=== PATIENT | male | born 1970 | race Caucasian/White ===

== ENCOUNTER 2019-07-14 08:11 | Day surgery (SDC) | payer BC, SELFPAY ==
[2019-07-14] VITALS (8 sets, daily range): BP systolic 102–134; BP diastolic 55–78; PULSE 69–84; RESP 15–20; TEMP 36.1–36.8; O2SAT 90–94
--- NOTE | 2019-07-14 06:45 | W.PM.HP.N ---
Date of service: 07/14/19 Time of Service: 11:01 Assessment and Plan (1) Encounter for screening colonoscopy: Current visit: No Status: Acute P\\ Colonoscopy under sedation Risks, benefits and complications have been reviewed. Complications include but are not limited to bleeding, pain, perforation, missed small lesion/polyp, sore throat, aspiration and adverse reaction to the medications. Questions were entertained and answered to their satisfaction and they wished to proceed. No guarantees were given or implied. History of Present Illness Narrative: 49 y/o male with a benign medical history presents for his first colonoscopy screening pre-op. He denies a family history of colon cancer. He denies any changes in bowel habits including bloody or black tarry stools, abdominal pain, diarrhea or constipation. He denies constitutional symptoms. Denies use of recreational or illegal drugs. He denies chest pain, palpitations, dyspnea or dyspnea with exertion. He rides his road bike to work daily ([address]) and goes to the gym 3x/wk. He denies prior history or family history of adverse reactions or complications with anesthesia. There have been no changes in his health since he was last seen Review of Systems Constitutional Denies fever(s) [facility] Medical History Sciatica (Acute) Surgical History History of back surgery (Acute) History of tonsillectomy (Chronic) Social History Smoking/Tobacco Use Status: Never Alcohol Intake: current Alcohol Intake frequency: a few times a week Alcohol type: beer Drug use: Occasionally Substance use type: marijuana Do you feel safe at home: Yes Do you feel safe in your relationship?: Yes Meds Home Medications Medication Instructions Recorded Confirmed Type ibuprofen 200 mg tablet 600 mg PO QID PRN tab 04/14/19 07/14/19 History Allergies Allergy/AdvReac Type Severity Reaction Status Date / Time ciprofloxacin [From Cipro] Allergy Unknown unknown Verified 07/14/19 08:32 Penicillins Allergy Unknown unknown Verified 07/14/19 08:32 Exam Resp Effort & Inspection: normal respiratory effort Auscultation: clear to auscultation bilaterally Cardio Rate: regular rate Rhythm: regular rhythm Heart Sounds: no gallops, no murmurs and no rubs
--- NOTE | 2019-07-14 06:47 | W.COLOREPORT ---
Date of service: 07/14/19 Time of Service: : Colonoscopy Report Date of procedure: 07/14/19 Pre-op diagnosis general: Colon Cancer Screening Post-op diagnosis procedure note: other (sigmoid polyps, mild diverticulosis) Procedure: Colonoscopy with polypectomy Surgeon: Mer Pena Anesthesia proc note operative: other (General/ ASA 2/Andreina Carpio CRNA ) Estimated blood loss (mL): 3 Pathology: other (sigmoid polyps x2) Complications: None Disposition: same day Indications: Mr. Alanis is a pleasant 49-year-old gentleman who was seen in the office for his first screening colonoscopy. He denies any family history of colon cancer. Risks, benefits and complications have been reviewed. Complications include but are not limited to bleeding, pain, perforation, missed small lesion/polyp, sore throat, aspiration and adverse reaction to the medications. Questions were entertained and answered to their satisfaction and they wished to proceed. No guarantees were given or implied. Prep: Miralax/Dulcolax Procedure Start Time: 11:22 Procedure End Time: 11:47 Retraction Time: 13 minutes Findings: 2 small sessile polyps in the sigmoid colon. Mild dievrticulosis of the signmoid colon Procedure Description: After informed consent was obtained the patient was taken to the procedure room and placed in a left decubitous position. Monitors were applied and a time out was done. The patients name, date of , procedure, allergies to medications and metal in their body was reviewed. The patient was then sedated. Once sedated and comfortable a rectal exam was done. External exam was normal. Internal exam revealed a normal sphincter tone and no palpable masses. The prostate smooth. The scope was then introduced and retro-flexed. No internal hemorrhoids were identified. The scope was then advanced to the cecum without difficulty. The TI and appendiceal orifice were identified. The prep was good. The scope was then slowly retracted over 13 minutes back into the rectum. Polyps were removed with cold forceps in the sigmoid colon. The scope was removed and the patient was woken up and taken back to Same day surgery in stable condition. The patient did bring up gastric contents and had to be suctioned by anesthesia. He had been given Bicitra prior to the procedure. He was coughing throughout the second half of the procedure. He will be going to PACU for monitoring. Follow up: The patient should follow up in 3-5 years unless they develop changes in bowel habits or other new gastrointestinal complaints.
--- NOTE | 2019-07-14 06:49 | W.PM.DSUDISC ---
Discharge Plan Disposition Patient Disposition: HOME Condition: Good Discharge Details Reason For Visit: Colonoscopy Attending Provider: Mer Pena Primary Care Provider: Jorge Davis Home Meds and New Rx's Prescriptions: Continued ibuprofen 200 mg tablet 600 mg PO QID PRNRF: 0 Discontinued polyethylene glycol 3350 17 gram/dose powder 238 g PO ONCE Qty: 238 RF: 0 bisacodyl [Dulcolax (bisacodyl)] 5 mg tablet,delayed release (DR/EC) 5 mg PO ONCE Qty: 4 RF: 0 Discharge Instructions Instructions: Colonoscopy (GEN), Diverticulosis (ED), Colorectal Polyps (GEN) Additional Instructions: Findings: 2 small polyps mild diverticulosis Follow up: 3-5 years Please call if you develop: fevers >101.5 Nausea or Vomiting Abdominal pain that is not transient DAY SURGERY UNIT POST COLONOSCOPY INSTRUCTIONS 1. Because there will be medication in your system for the next 24 hours, you may feel a little sleepy. Your coordination will be affected. Therefore: a. Do not drive or operate dangerous equipment for 24 hours. b. Do not drink alcohol beverages for 24 hours (not even beer). c. Plan to go home and rest for the day. 2. Generally there are no restrictions on your activity after a day or so has gone by, but you may feel a bit fatigued for a few days. 3 After you arrive home you may have a light meal and return to a normal diet as you can tolerate it without feeling sick to your stomach. 4. After surgery, you may feel pain or discomfort. This should be only transient, but if it persists please contact your doctor. 5. If there are any questions regarding the findings of your procedure, please feel free to contact your doctor. 6. If you are unable to contact your doctor with a problem, contact the hospital at [phone]. 7. Continue all your regular medications unless directed otherwise. I understand the above instructions and have no questions. Signature of Patient or Responsible Adult Escort Date/Time Name of Responsible Adult Escort Signature of Nurse Date/Time Activity:: Activity as Tolerated Diet:: High Fiber diet Discharge Orders Discharge Orders: Discharge Order (Routine); Ordered 07/14/19 Ordered By: Mer Pena DS: Diagnosis Discharge Diagnosis (1) Encounter for screening colonoscopy: Status: Acute (2) Colorectal polyps: (3) S/P colonoscopy: (4) Diverticulosis:
[2019-07-14] MEDS: Lactated Ringers 1,000 ML 80 ML IV ×2 (08:46→11:53)
[2019-07-14] MEDS: Sodium Citrate 30 ML CUP (11:15)
--- NOTE | 2019-07-14 11:44 | BOWEL_PTH ---
PATIENT: Otoniel Alanis LOC: [facility] U#:[id number] AGE/SX: 49/M ROOM: RE07/14/[address]: Mer Pena MD : 1970 BED: DIS: 07/14/2019 SPEC #: [id number] RECD: 07/14/19 12:40 STATUS: LEONARDO REQ #: [id number] KAYLAN: 07/14/19 11:[address]: Mer Pena DEPT: Surgical Specimen RECD BY: Belkis Brooke ENTERED: 07/14/19 12:41 SP TYPE: Bowel OTHR DR: Jorge Davis Tissues: 1 - BIOPSY BOWEL Procedures: GROSS AND MICRO LEVEL 4 Comments: [id number]
== END 2019-07-14 14:12 | disposition home or self-care (01) ==
PROVIDERS: PCP Internal Medicine; Visit Provider Surgery
PROC: 0DJD8ZZ Inspection of Lower Intestinal Tract, Via Natural or Artificial Opening Endoscopic (ICD-10-PCS; CPT 45378; principal; 2019-07-14 10:00)
DX: Z12.11 Encounter for screening for malignant neoplasm of colon (principal); Z87.19 Personal history of other diseases of the digestive system; K63.5 Polyp of colon; K57.30 Diverticulosis of large intestine without perforation or abscess without bleeding; R11.10 Vomiting, unspecified; R07.9 Chest pain, unspecified
CPT/HCPCS: 45380; 88305; NC; 93005; 93010

== ENCOUNTER 2019-12-08 20:50 | Outpatient (REF) | payer BC, SELFPAY ==
[2019-12-08 19:29] LABS: Abs Immature Grans 0.01 k/cumm (0.0-0.09); Absolute Basophil Count 0.02 k/cumm (0.0-0.2); Absolute Eosinophil Count 0.06 k/cumm (0.0-0.7); Absolute Lymphocyte Count 1.52 k/cumm (1.2-3.4); Absolute Monocyte Count 0.59 k/cumm (0.11-0.7); Absolute Neutrophil Count 4.04 k/cumm (1.2-6.7); Basophils % 0.3; HCT 44.3 % (40.0-50.0); HGB 15.2 g/dL (13.5-17.5); Immature Grans % 0.2 %; Lymphocytes % 24.4; Mean Corp. HGB Concentration 34.3 g/dL (32.0-36.0); Mean Corpuscular Hemoglobin 32.8 pg (27.0-33.0); Mean Corpuscular Volume 95.7 fL (80-95); Mean Platelet Volume 9.8 fL (8.0-11.0); Monocytes % 9.5; Neutrophils % 64.6; Platelet Count 287 x1000/uL (130-400); RBC 4.63 m/cumm (4.50-6.00); RBC Distribution Width 12.1 % (11.8-14.1); White Blood Cell Count 6.24 k/cumm (4.4-10.8)
== END 2019-12-08 21:10 ==
LOC: NCHCN 20:50
PROVIDERS: Physician Assistant; PCP Internal Medicine; Visit Provider Internal Medicine
DX: Z01.818 Encounter for other preprocedural examination (principal)
CPT/HCPCS: 85025

== ENCOUNTER 2020-09-23 03:03 | Outpatient (CLI) | payer BC, SELFPAY ==
--- NOTE | 2020-09-23 | DI.US_ITS ---
EXAM: US SOFT TISS ABD WALL/LOW BACK CLINICAL HISTORY: LIPOMA ABD WALL,RT UPPER ABD AND LT LAT TRUNK LUMPS,HERNIA VS LIPOMA. TECHNIQUE: Ultrasound was performed using standard protocol. COMPARISON: No exams were available for comparison FINDINGS: Sonographic assessment utilizing grayscale and color Doppler imaging was performed and targeted to th e area of clinical concern. The palpable area in the sub xiphoid region corresponds to a homogeneous, fatty echogenicity lesion measuring 3.2 x 1.5 x 3.3 cm, consistent with a simple lipoma. The 2nd area of palpable abnormality is seen in the left lateral flank region which is also homogeneous and isoechoic with adjacent fat a nd measures 4.9 x 0.8 x 3.5 cm. IMPRESSION: Palpable abnormalities are consistent with lipomas. There is no evidence of a hernia. DATA REPOSITORY:
== END 2020-09-23 03:23 ==
PROVIDERS: PCP Internal Medicine; Visit Provider Nurse Practitioner Family
DX: D17.79 Benign lipomatous neoplasm of other sites (principal)
CPT/HCPCS: 76705

== ENCOUNTER 2020-10-07 10:53 | Outpatient (REF) | payer BC, SELFPAY ==
--- NOTE | 2020-10-07 09:00 | SKI_PTH ---
PATIENT: Otoniel Alanis LOC: [facility] U#:[id number] AGE/SX: 50/M ROOM: RE10/07/[address]: Pili Mcbride : 1970 BED: DIS: 10/07/2020 SPEC #: [id number] RECD: 10/07/20 11:31 STATUS: LEONARDO REAndrew #: [id number] KAYLAN: 10/07/20 09:[address]: Pili Mcbride DEPT: Surgical Specimen RECD BY: Domonique Whitman ENTERED: 10/07/20 11:33 SP TYPE: SKI OTHR DR: Jorge Davis Tissues: 1 - SKIN BIOPSY(SHAVE/PUNCH) Procedures: GROSS AND MICRO LEVEL 5 Comments: [id number]
== END 2020-10-07 11:13 ==
LOC: LBN 10:53
PROVIDERS: PCP Internal Medicine; Visit Provider Surgery
DX: D17.1 Benign lipomatous neoplasm of skin and subcutaneous tissue of trunk (principal); D17.21 Benign lipomatous neoplasm of skin and subcutaneous tissue of right arm
CPT/HCPCS: 88305; 88307

== ENCOUNTER 2022-07-30 16:12 | Outpatient (REF) | payer BC, SELFPAY ==
[2022-07-30 16:28] LABS: HCT 44.9 % (40.0-50.0); HGB 15.9 g/dL (13.5-17.5); MCH 33.3 pg (27.0-33.0); MCHC 35.4 % (32.0-36.0); MCV 94 fL (80-95); MPV 10.2 fL (8.0-11.0); Platelet Count 266 10^3/uL (130-400); RBC 4.78 10^6/uL (4.36-5.78); RDW 11.7 % (11.8-14.1); RDW-SD 40.4 fL; WBC 6.25 10^3/uL (4.4-10.8)
[2022-07-30 16:51] LABS: Anion Gap 13.2 mmol/L (3-11); BUN 18 mg/dL (7-18); CO2 24.8 mmol/L (21.0-32.0); CREATININE 1.1 mg/dL (0.70-1.30); Calcium 9.6 mg/dL (8.5-10.1); Calculated LDL 146 mg/dL (<100); Chloride 104 mmol/L (98-107); Cholesterol 232 mg/dL (<200); Estimated GFR 80.27 (mL/min/1.73m2); Glucose 96 mg/dL (74-106); HDL Cholesterol 55 mg/dL (40-60); Potassium 4.3 mmol/L (3.5-5.1); Sodium 142 mmol/L (136-145); Triglyceride 157 mg/dL (<150)
[2022-07-31 18:22] LABS: PSA, Screening 3.3 ng/mL (<=3.5)
== END 2022-07-30 16:13 | disposition home or self-care (01) ==
LOC: NCHCN 16:12
PROVIDERS: PCP Internal Medicine; Visit Provider Physician Assistant
DX: Z00.00 Encounter for general adult medical examination without abnormal findings (principal); Z12.5 Encounter for screening for malignant neoplasm of prostate
CPT/HCPCS: 80048; 80061; 84153; 85027

== ENCOUNTER 2024-07-31 15:00 | Outpatient (REF) | payer BC, SELFPAY ==
[2024-07-31 16:20] LABS: ALT 30 U/L (16-63); AST 13 U/L (15-37); Alkaline Phosphatase 68 U/L (46-116); Anion Gap 10.3 mmol/L (3-11); BUN 16 mg/dL (7-18); Bilirubin, Total 1.06 mg/dL (0.2-1.0); CO2 24.7 mmol/L (21.0-32.0); CREATININE 1.1 mg/dL (0.70-1.30); Calcium 9.4 mg/dL (8.5-10.1); Calculated LDL 141 mg/dL (<100); Chloride 105 mmol/L (98-107); Cholesterol 230 mg/dL (<200); Estimated GFR 79.28 (mL/min/1.73m2); Glucose 102 mg/dL (74-106); HDL Cholesterol 53 mg/dL (40-60); Potassium 4.1 mmol/L (3.5-5.1); Sodium 140 mmol/L (136-145); Total Protein 6.9 g/dL (6.4-8.2); Triglyceride 182 mg/dL (<150)
== END 2024-07-31 15:01 | disposition home or self-care (01) ==
LOC: NCHCN 15:00
PROVIDERS: PCP Internal Medicine; Visit Provider Physician Assistant
DX: E78.5 Hyperlipidemia, unspecified (principal); Z12.5 Encounter for screening for malignant neoplasm of prostate
CPT/HCPCS: 80053; 80061; 84153

== ENCOUNTER 2024-11-06 00:30 | Outpatient (CLI) | payer BC, SELFPAY ==
--- NOTE | 2024-11-06 13:30 | DI.RAD_ITS ---
Exam(s) XR CERVICAL SPINE COMP 4-5V EXAM: XR CERVICAL SPINE COMP 4-5V CLINICAL HISTORY: NECK PAIN,M54.2. TECHNIQUE: 2D digital imaging was performed. Seven images were obtained. AP, odontoid, lateral and b ilateral oblique images were obtained. COMPARISON: No exams were available for comparison FINDINGS: The odontoid is intact. The lateral masses are well aligned. There are endplate osteophytes from C3 through C7. There is disc space narrowing at C4-C5 through C6-C7. No acute fracture or subluxation is present. There is moderate neural foraminal narrowing on the right at C4-5 and C5-C6 and mild sintia ral foramen normal narrowing on the right at C6-C7. There is moderate neural foraminal narrowing on the left at C5-6 and C6-C7. There is mild reversal of the normal cervical lordosis. This is centere d at C4. The cervical thoracic junction is well maintained. The prevertebral soft tissues are unrema rkable. Lung apices are clear. IMPRESSION: Moderate cervical spondylosis. DATA REPOSITORY: RADIATION DOSE DELIVERED:
== END 2024-11-06 00:50 ==
LOC: DI 00:30
PROVIDERS: PCP Internal Medicine; Visit Provider Physician Assistant
DX: M47.892 Other spondylosis, cervical region (principal)
CPT/HCPCS: 72050

== ENCOUNTER 2025-01-27 14:28 | Outpatient (CLI) | payer BC, SELFPAY ==
[2025-01-27 14:43] VITALS: BP 148/88; PULSE 81; RESP 20; TEMP 36.7; O2SAT 96
[2025-01-27 15:47] VITALS: PULSE 74; O2SAT 94
[2025-01-27 15:50] VITALS: BP 140/60; PULSE 71; RESP 20; O2SAT 94
[2025-01-27 15:51] VITALS: PULSE 69; RESP 13; O2SAT 95
--- NOTE | 2025-01-27 16:00 | DI.RAD_ITS ---
Exam(s) XR PAIN CLINIC CERVICAL SP 2V EXAM: XR PAIN CLINIC CERVICAL SP 2V CLINICAL HISTORY: Dx: Cervical Spondylosis TECHNIQUE: 2D and realtime digital imaging was performed. CONTRAST MATERIAL: Refer to procedure report. COMPARISON: No exams were available for comparison FINDINGS: Fluoroscopy was provided for Dr. Vigil during the performance of a cervical medial branch block. Ple ase refer to the procedure report for complete details. Ka,r=3.61 mGy IMPRESSION: RADIATION DOSE DELIVERED: 0.0 0.0 0
[2025-01-27] MEDS: Nerve Block Tray 1 EACH MC (16:05)
[2025-01-27] MEDS: Bupivacaine 0.5% Pres-Free 10 ML VIAL IJ (16:05)
[2025-01-27] MEDS: Omnipaque 240 MG/ML 50 ML BTL IJ (16:06)
--- NOTE | 2025-01-28 16:02 | PDOC.PAIN_ITS ---
Date of service: 01/27/25 Time of Service: 16:00 Pain Managment Procedure Note Procedure Note Procedure Note: PROCEDURE NOTE LEFT SIDED CERVICAL MEDIAL BRANCH BLOCKS Date of Service: January 27, 2025 Patient: Otoniel Alanis Provider: Arslan Vigil DO, MPH Ootnieladri Alanis has been referred to the [facility] for cervical medial branch blocks. Pre-operative diagnosis: Cervical Spondylosis without Myelopathy ICD-10 M47.812 Post-operative diagnosis: Same Pre-procedure pain: VAS= 3/10 COMMENTS: I previously evaluated him in the office. Philipwas interviewed and the medical records were reviewed. There were no medical, pharmacologic, radiographic or other structural contraindications to attempting fluoroscopically guided local anesthetic cervical medial branch blocks. Risks and potential side effects were discussed. I also discussed the potential benefit(s) of the procedure with Otoniel, and voiced concerns were addressed. After Otoniel was completely informed about the procedure, the printed consent form was signed. A standard time-out procedure was performed. Otoniel was placed in the lateral decubitus position on the fluoroscopy table with the effected side up. Automated blood pressure cuff and pulse oximeter were applied. The skin entry points for approaching the anatomic target points of the segmental medial branches of Left C3,C4,C5, and C6 were identified with fluoroscopy and marked. The skin at the target site area was thoroughly prepared with Chlorhexadine. The skin was then draped. Next, a 25 gauge 3.5 spinal needle was placed under fluoroscopic guidance down on to the target point (the articular pillar) for each respective segmental medial branch. Position was confirmed in A/P and lateral views. Aspiration revealed no blood or clear fluid. Next, 0.25ml of omnipaque 240 was injected at each level. No contrast following a vascular or neural pattern was visualized under continuous fluoroscopy. Next, 0.25 ml of preservative-free 0.5% bupivicaine was injected at each level. (49 mls of Omnipaque was wasted) There was no unusual discomfort expressed by Otoniel. The needles were withdrawn without difficulty. Otoniel was observed and was without hemodynamic, neurologic, or allergic reactions.? Fluoroscopic images were digitally archived. Otoniel's vital signs were stable throughout the procedure and were as recorded in the docflowsheet by the nursing staff. Provacative testing using the Modified Zepeda's facet loading test Left side Directly before the block VAS (0-10) = 3/10 Five minutes after the block VAS (0-10) = 1/10 Percentage relief obtained with this diagnostic block 80% Any improved physical functioning directly after the blocks? Able to move his back well after the procedure Follow up plans and appointments were discussed with Otoniel. Otoniel was instructed to keep careful note of how the usual pain was modified by these injections. Specifically, to keep a pain diary for the next 4 hours using a numeric pain scale of 0-10 and report these results. Post procedure instruction was given as documented in the nursing documentation and having met discharge criteria, the patient was [facility] from the [facility]. Based on the medial branches blocked today, if Otoniel has adequate relief and we are able to proceed to radiofrequency ablation, the treatment should result in the denervation of the Left C3-C4, C4-C5, and C5-C6 facet joints. We would expect to denervate a total of 3 facets during the radiofrequency ablation. COMMENTS: No apparent complications. Post-procedure pain: VAS= 1/10 Otoniel will call back with 0-4 hour post-procedure pain scores. I personally performed the entire procedure. ARSLAN VIGIL DO, MPH ABPM&R-subspecialty board certification in Pain Medicine [facility] Coding Conscious Sedation used for procedure: No CPT Codes: CMBB (includes Fluoro) Cervical/Thoracic, single lvl - 13877 ([id number] ~G) CMBB (includes Fluoro) Cervical/Thoracic, 2nd lvl - 39853 ([id number] ~G) CMBB (includes Fluoro) Cervical/Thoracic, 3rd & add'l lvls - 52369 ([id number] ~G) Additional Codes: Date of Service (49378) Date of service: 01/27/25
== END 2025-01-27 14:29 | disposition home or self-care (01) ==
LOC: PC 14:29
PROVIDERS: PCP Physician Assistant; Visit Provider Preventive Medicine Occupational Medicine
DX: M47.812 Spondylosis without myelopathy or radiculopathy, cervical region (principal)
CPT/HCPCS: 64490; 64491; 64492; 72040; J0665; Q9967

== ENCOUNTER 2025-02-02 02:23 | Outpatient (CLI) | payer BC, SELFPAY ==
--- NOTE | 2025-02-02 | DI.MRI_ITS ---
Exam(s) MR LUMBAR SPINE WO EXAM: MR LUMBAR SPINE WO CLINICAL HISTORY: SPONDYLOLISTHESIS M43.10. TECHNIQUE: Multiplanar multisequence MRI of the Lumbar spine was performed. COMPARISON: CR XR CERVICAL SPINE COMP 4-5V from 11/06/2024 XR PAIN CLINIC CERVICAL SP 2V from 01/27/2025 FINDINGS: Bones: The last intervertebral disc space is designated the L5/S1 level for the numbering purpose of this ex amination. The vertebral body heights are well maintained. Posterior fusion hardware at L4-5. Alignment: Unremarkable. The marrow signal characteristics are unremarkable. Cord: The conus tip ends at the L1 level. It is of normal size and signal intensity. T12-L1: No focal disc herniation is present. No central spinal canal stenosis.No neural foraminal st enosis. L1-2: No focal disc herniation is present. No central spinal canal stenosis.No neural foraminal sten osis. L2-3:Minimal disc bulging. No focal disc herniation is present. No central spinal canal stenosis.N o neural foraminal stenosis. L3-4: Slight loss of disc height. Left paracentral disc protrusion with inferior extrusion of disc m aterial. There are facet degenerative changes and ligamentous hypertrophy which combine with the dis c herniation to cause moderate central spinal canal stenosis.Mild bilateral neural foraminal stenosi s. L4-5:Posterior fusion hardware. Prior laminectomy. Ppql-mw-fljgxalh loss of disc height. Minimal d isc bulging. No focal disc herniation is present. No central spinal canal stenosis.No neural forami nal stenosis. L5-S1: Moderate loss of disc height. Endplate osteophytes.No focal disc herniation is present. No c entral spinal canal stenosis.Mild right neural foraminal stenosis. The visualized SI joints and sacrum are unremarkable. Soft tissues: The paraspinal soft tissues are unremarkable. IMPRESSION: Left paracentral disc herniation at L4-5 with inferior extrusion of disc material. Combination of di sc herniation and degenerative changes cause moderate central canal stenosis at this level. Prior laminectomy and posterior fusion at L4-5. DATA REPOSITORY:
== END 2025-02-02 02:43 ==
LOC: DI 02:23
PROVIDERS: PCP Physician Assistant; Visit Provider Physician Assistant
DX: M43.16 Spondylolisthesis, lumbar region (principal)
CPT/HCPCS: 72148

== ENCOUNTER 2025-03-31 09:15 | Outpatient (CLI) | payer BC, SELFPAY ==
--- NOTE | 2025-03-31 06:00 | DI.RAD_ITS ---
Exam(s) XR PAIN CLINIC LUMBAR SP 2V EXAM: XR PAIN CLINIC LUMBAR SP 2V CLINICAL HISTORY: DX: Lumbar Radiculopathy. TECHNIQUE: Fluoroscopy was provided for the referring physician for guidance with performing pain cl inic injection procedure. COMPARISON: No exams were available for comparison FINDINGS: Please see procedure note for details. Fluoro time: 33.6 seconds RADIATION DOSE DELIVERED: Ka,r=15.6 mGy
[2025-03-31 09:23] VITALS: BP 146/87; PULSE 79; RESP 20; TEMP 36.7; O2SAT 96
[2025-03-31 09:46] VITALS: PULSE 73; RESP 15; O2SAT 96
[2025-03-31 09:49] VITALS: BP 159/85; PULSE 71; PULSE 72; RESP 16; O2SAT 95
[2025-03-31 09:50] VITALS: PULSE 77; RESP 17; O2SAT 97
[2025-03-31 10:00] VITALS: BP 154/94; PULSE 72
--- NOTE | 2025-03-31 10:03 | PDOC.PAIN ---
Date of service: 03/31/25 Time of Service: 10:03 Pain Managment Procedure Note Procedure Note Procedure Note: PROCEDURE NOTE CAUDAL EPIDURAL STEROID INJECTION Date of Service: March 31, 2025 Patient:? Otoniel Alanis? Provider:? Sujit Vigil DO, MPH Otoniel Alanis has been referred to the [facility] for caudal epidural steroid injection.? Pre-operative diagnosis: Lumbosacral Radiculopathy, ICD-10 M54.17 Post-operative diagnosis: Same Pre-Procedure Pain: VAS= 5/10. COMMENTS: I previously evaluated him in the office. No change in his symptoms since that time. *I did review his labs from the past year or so. His LDL and Tryglycerides are consistently high. I did show this to him and urged him to talk to his PCP about medication for this as he already exercises and has a fair diet. I let him know that these values greatly increased his ASCVD risk. He said that he would contact his PCP. Philipwas interviewed and the medical record was reviewed.? There were no medical, pharmacologic, radiographic or other structural contraindications to attempting fluoroscopically guided epidural steroid injection.? Risks and expected side effects as well as potential benefit of the procedure were reviewed with Philip, and the patient's voiced concerns were addressed.? The printed consent form was signed.? Standard time-out procedure was performed. Philip was placed in the prone position on the fluoroscopy table and automated blood pressure cuff and pulse oximeter applied.? The skin entry point for entering/approaching the epidural space by a caudal approach through the sacral hiatus ed identified with surgical skin marking.? Following thorough chlorhexidine preparation of the skin and draping and 1% lidocaine infiltration of the skin entry point and subcutaneous tissues, a 17 gauge Touhy needle was placed under fluoroscopic guidance? into the epidural space. Needle tip placement and depth were aided and confirmed by fluoroscopy in the lateral and AP position. There was no paresthesia or return of blood or CSF through the needle. 1 cc of Omnipaque 240 was injected with clear epidural spread confirmed with fluoroscopy. An Arrow 19G radio-opaque epidural catheter was advanced into the epidural space to the L5 level and 2 cc of Omnipaque 240 was injected with clear epidural spread. 80 mg of Depo-Medrol was? injected. There was no unusual discomfort expressed by Otoniel. The needle and catheter were then flushed with 1 cc of 1% Lidocaine and they were removed together without difficulty (49 cc of Omnipaque was wasted). Otoniel was observed and was without hemodynamic, neurologic, or allergic reactions.? Fluoroscopic images were digitally archived. Otoniel's vital signs were stable throughout the procedure and were as recorded in the docflowsheet by the nursing staff.? If given, dosages of intravenous drugs for anxiolysis and analgesia were documented in MAR. Follow up plans and appointments were discussed with Otoniel.? Post procedure instruction was given as documented in nursing documentation and having met discharge criteria, Otoniel was [facility] from the [facility]. ? COMMENTS: No apparent complications.? Post-procedure pain: VAS= 0/10. If the patient receives at least 50% improvement in pain and/or function for at least 3 months, this procedure can be repeated. I personally completed the entire procedure. SUJIT VIGIL DO, MPH ABPM&R - Subspecialty board certification in Pain Medicine [facility] Coding Conscious Sedation used for procedure: No CPT Codes: Inj Spine L/S w/Imaging - 26318 ([id number] ~G) Additional Codes: Date of Service (20937) Date of service: 03/31/25
[2025-03-31] MEDS: Nerve Block Tray 1 EACH MC (10:05)
[2025-03-31] MEDS: Omnipaque 240 MG/ML 50 ML BTL IJ (10:05)
[2025-03-31] MEDS: methylPREDNISolone ACETATE 80 MG/ML VIAL IJ (10:06)
== END 2025-03-31 09:16 | disposition home or self-care (01) ==
LOC: PC 09:16
PROVIDERS: PCP Physician Assistant; Visit Provider Preventive Medicine Occupational Medicine
DX: M54.17 Radiculopathy, lumbosacral region (principal)
CPT/HCPCS: 62323; 72100; J1010; Q9967

== ENCOUNTER 2025-07-19 19:13 | Outpatient (REF) | payer BC, SELFPAY ==
[2025-07-19 17:32] LABS: ALT 44 U/L (16-63); AST 18 U/L (15-37); Albumin 3.9 g/dL (3.4-5.0); Alkaline Phosphatase 65 U/L (46-116); Anion Gap 9.9 mmol/L (3-11); BUN 16 mg/dL (7-18); Bilirubin, Total 1.2 mg/dL (0.2-1.0); CO2 27.1 mmol/L (21.0-32.0); Calcium 9.5 mg/dL (8.5-10.1); Calculated LDL 97 mg/dL (<100); Chloride 104 mmol/L (98-107); Cholesterol 169 mg/dL (<200); Estimated GFR 88.33 (mL/min/1.73m2); Glucose 99 mg/dL (74-106); HDL Cholesterol 47 mg/dL (>or=40); Potassium 4.3 mmol/L (3.5-5.1); Sodium 141 mmol/L (136-145); Total Protein 6.9 g/dL (6.4-8.2); Triglyceride 129 mg/dL (<150)
== END 2025-07-19 19:14 | disposition home or self-care (01) ==
LOC: NCHCN 19:13
PROVIDERS: PCP Physician Assistant; Visit Provider Physician Assistant
DX: E78.5 Hyperlipidemia, unspecified (principal)
CPT/HCPCS: 80053; 80061

== ENCOUNTER 2025-10-22 08:10 | Emergency (ER) | payer BC, SELFPAY ==
[2025-10-22 08:12] VITALS: BP 150/110; PULSE 76; RESP 16; O2SAT 97
--- NOTE | 2025-10-22 08:20 | W.ED.GENAD ---
Discharge Plan Disposition Patient Disposition: Home Condition: Stable Discharge Details Clinical Impression: Pain of left great toe Primary Care Provider: Michael Robles ED Provider: Sebastien Pemberton Home Meds and New Rx's Prescriptions: Continued bupropion HCl 300 mg tablet extended release 24 hr 300 mg PO QAM lorazepam 1 mg tablet 1 mg PO QHS PRN sildenafil 25 mg tablet 25 mg PO DAILY PRN Rx Instructions: administer 30 minutes to 4 hours before activity gabapentin 300 mg capsule 300 mg PO TID atorvastatin 20 mg tablet 20 mg PO DAILY Discharge Instructions Instructions: Low Purine Diet, Bunion, Gout ED Additional Instructions: You were seen in the emergency department for your left great toe pain, this could be exacerbation of old injury versus a bunion versus gout. Please start taking 440 mg of Aleve twice per day, follow-up with the podiatry referral I have placed for you, your uric acid test is pending for the next couple hours I will call you if it is positive. Please return for any worsening redness redness spreading up the leg or any other signs of severe infection. Stand Alone Forms: Physical Therapy Referral, Portal Information Referrals: Michael Robles [Primary Care Provider, Medicine] Padmini Garcia DPM [[facility] ST[facility]FF PHYSICIAN, Podiatry] Discharge Data Discharge Date/Time-TO BE ENTERED AT DEPARTURE: 10/22/25 09:46 HPI General Date/Time Provider Initiated Documentation: 10/22/25 08:20. HPI Narrative: 55 year-old male presents to ED today by POV/ambulating with a chief complaint of pain at base of L great toe- recently returned from vacation in [place] and had been walking a lot on the beach, with onset over pain over the past few days. Quality described as burning sensation, no radiation to erythema, lesion, purulent drainage, lymphadenitis, trauma. Severity is described as severe. Palliating factors include took OTC analgesics with some mild relief. Provoking factors include nothing specific. Events leading up to the incident/Associated Symptoms: Patient denies any known gout history, but was eating purine rich foods and having alcohol on vacation. Patient not anticoagulated. Related Data Home Medications Medication Instructions Recorded Confirmed bupropion HCl 300 mg 24 hr tablet, 300 mg PO QAM 12/10/24 10/22/25 extended release lorazepam 1 mg tablet 1 mg PO QHS PRN 12/10/24 10/22/25 sildenafil 25 mg tablet 25 mg PO DAILY PRN 12/10/24 10/22/25 gabapentin 300 mg capsule 300 mg PO TID 03/10/25 10/22/25 atorvastatin 20 mg tablet 20 mg PO DAILY 10/22/25 10/22/25 Allergies Allergy/AdvReac Type Severity Reaction Status Date / Time nirmatrelvir (From Paxlovid) Allergy Mild Skin Rash Verified 10/22/25 08:17 ritonavir (From Paxlovid) Allergy Mild Skin Rash Verified 10/22/25 08:17 ciprofloxacin (From Cipro) Allergy Unknown unknown Verified 10/22/25 08:17 Penicillins Allergy Unknown unknown Verified 10/22/25 08:17 General Stated Complaint: Orthopedic CARTER: 4 Review of Systems All systems reviewed & are unremarkable except as noted in HPI and below Exam Narrative Exam Narrative: GENERAL APPEARANCE: Well-nourished, non-toxic, awake and alert, atraumatic, no acute distress. SKIN: Warm, pink, dry, intact, without rashes/lesions/ulcerations. HEAD: Normocephalic, atraumatic, normal hair distribution for gender/age. EYES: Normal conjunctiva, no exudates on lids/lashes. ENT: Nares patent, no circumoral cyanosis, no facial swelling NECK: Supple, trachea midline, painless cervical ROM. LUNGS/CHEST: Non-labored respirations, normal A/P diameter, symmetrical expansion, no chest wall deformity HEART (CV/PV): Regular rate, no peripheral edema, no JVD. ABDOMEN: Soft, non-distended, no guarding. MSK: Normal ROM, no swelling/deformity to bilateral UEs or LEs, moving all extremities without weakness, no cyanosis, spine midline without tenderness, normal curvature L FOOT: mild swelling and tenderness at the base of the left great toe without warmth or wagner erythema, no tophi,, range of motion intact, no lymphadenitis, left dorsalis pedis pulse 2+ NEURO: Mental Status AAOx4 - alert to person, place, time, events No facial droop, no forehead involvement. Motor: No focal weakness - strength 5/5 in bilateral UEs and LEs, proximal and distal, symmetric. Sensory: sensation intact to light touch globally. Gait normal: patient ambulated without ataxia into ED room. PSYCH: euthymic, cooperative, pleasant, appropriate speech Course Vital Signs Vital signs: Vital Signs Pulse 76 10/22/25 08:12 Respiratory Rate 16 10/22/25 08:12 Blood Pressure 150/110 H 10/22/25 08:12 Pulse Oximetry 97 10/22/25 08:12 Temperature Source Oral 10/22/25 08:12 Pulse 76 10/22/25 08:12 Respiratory Rate 16 10/22/25 08:12 Blood Pressure 150/110 H 10/22/25 08:12 Blood Pressure Position Sitting 10/22/25 08:12 Pulse Oximetry 97 10/22/25 08:12 Oxygen Delivery Method Room Air 10/22/25 08:12 Oxygen Flow Rate 0 10/22/25 08:12 Pain Level 5 10/22/25 08:12 Medical Decision Making This dictation utilizes [id number] dictation software and may contain unedited grammatical errors. 55 year-old male presents to ED today by POV/ambulating with a chief complaint of pain at base of L great toe- recently returned from vacation in [place] and had been walking a lot on the beach, with onset over pain over the past few days. Quality described as burning sensation, no radiation to erythema, lesion, purulent drainage, lymphadenitis, trauma. Severity is described as severe. Palliating factors include took OTC analgesics with some mild relief. Provoking factors include nothing specific. Events leading up to the incident/Associated Symptoms: Patient denies any known gout history, but was eating purine rich foods and having alcohol on vacation. Patients' medical history: Diverticulosis, sciatica, acquired deformity of joint of big toe. Family and social history: Did eat a lot of purine rich foods and have daily multiple drinks on vacation. Pertinent exam findings / vital signs include mild swelling and tenderness at the base of the left great toe without warmth or wagner erythema, no tophi,, range of motion intact, no lymphadenitis, left dorsalis pedis pulse 2+. Differential / pathologies of concern include gout, pseudogout, bunion, arthritis, less likely cellulitis. Diagnostic studies of: - CRP/ESR, uric acid level, x-ray left foot. - Labs benign - X-ray shows some degenerative changes and mild soft tissue swelling Interventions of: - Recommend high-dose NSAIDs and referred to podiatry. ED Course/Assessment/Plan: 55-year-old male presents with pain at the base of his left great toe, worsened by lots of walking on vacation, workup for gout initiated without any clear findings, he has no signs of obvious cellulitis on exam and does have an old injury that may be exacerbated to this area, I did refer him to podiatry but in the meantime recommend he ice and elevate and rested as well as take daily Aleve, strict return criteria for any worsening signs of infection. Findings not consistent with gout, tophi, neurovascular compromise, cellulitis. Disposition of Pain of Left Great Toe. Patient verbalized understanding of the plan and return to ED criteria and engaged in shared decision making. Medical Records Medical records reviewed: Yes I reviewed the patient's medical records. Imaging Data Radiologic Study: Attestation: I personally reviewed and interpreted this imaging study as follows: Imaging: X-Ray Radiologist's impression: EXAM: XR FOOT LT COMPLETE CLINICAL HISTORY: ?gout, L 1st toe swelling. TECHNIQUE: 2D digital imaging was performed. Three views. COMPARISON: CR RIGHT FOOT COMPLETE from 04/23/2018 CR LEFT FOOT COMPLETE from 04/23/2018 FINDINGS: BONES: No acute fracture is present. No bony destructive lesion is seen. JOINTS: No dislocation present. Slight narrowing and periarticular spurring of the 1st MTP joint. SOFT TISSUE: Soft tissue swelling at 1st MTP joint. IMPRESSION: Soft tissue swelling at 1st MTP joint. Mild degenerative changes. No findings specific for gout. Lab Data Lab results reviewed: Yes I reviewed the patient's lab results. Labs: Laboratory Tests Range/Units 10/22/25 08:33 ESR (0-20) mm/hr 2 Uric Acid (3.7-9.2) mg/dL 6.1 C-Reactive Protein (<=0.50) mg/dL < 0.50 PFSH All Active Problems (Updated 10/22/25 @ 09:26 by TERRY Sarmiento) Pain of left great toe (Acute) Lumbar post-laminectomy syndrome (Acute) Depression (Chronic) Cervical spondylosis without myelopathy (Acute) Poison hung dermatitis (Acute) Otorrhagia of right ear (Acute) Acquired deformity of joint of big toe (Acute) Degenerative spondylolisthesis (Acute) Spinal stenosis, lumbar (Acute) Acute otitis media, right (Acute) Lipoma of abdominal wall (Acute) Left lateral trunk Right Abdominal wall Encounter for screening colonoscopy (Acute) Medical History Sleep-related movement disorder Spondylolisthesis Anxiety Recurrent major depression Hyperlipidemia Diverticulosis Colorectal polyps Sciatica Surgical History History of adenoidectomy History of placement of ear tubes 6-7yrs old S/P colonoscopy (~07/14/19) History of tonsillectomy 1979 History of back surgery Lumbar fusion 2019 1996 Family History Father Prostate cancer Brother Prostate cancer Social History Smoking/Tobacco Use Status: Never Smoking risk assessment performed?: Yes Alcohol Intake: current Alcohol Intake frequency: 0-2 drinks per day Alcohol type: beer Drug use: Current Sobriety Substance use type: marijuana Pets and animals: Yes (2) Pets and animals: dog(s) Do you feel safe at home: Yes Do you feel safe in your relationship?: Yes
[2025-10-22 08:45] LABS: ESR 2 mm/hr (0-20)
--- NOTE | 2025-10-22 09:00 | DI.RAD_ITS ---
Exam(s) XR FOOT LT COMPLETE EXAM: XR FOOT LT COMPLETE CLINICAL HISTORY: ?gout, L 1st toe swelling. TECHNIQUE: 2D digital imaging was performed. Three views. COMPARISON: CR RIGHT FOOT COMPLETE from 04/23/2018 CR LEFT FOOT COMPLETE from 04/23/2018 FINDINGS: BONES: No acute fracture is present. No bony destructive lesion is seen. JOINTS: No dislocation present. Slight narrowing and periarticular spurring of the 1st MTP joint. SOFT TISSUE: Soft tissue swelling at 1st MTP joint. IMPRESSION: Soft tissue swelling at 1st MTP joint. Mild degenerative changes. No findings specific for gout. DATA REPOSITORY: RADIATION DOSE DELIVERED:
[2025-10-22 09:07] LABS: C-Reactive Protein < 0.50 mg/dL (<=0.50)
[2025-10-22] MEDS: Naproxen 250 MG TAB 500 MG PO (09:36)
[2025-10-22 09:45] VITALS: BP 130/91; PULSE 65; RESP 16; O2SAT 95
[2025-10-22 11:14] LABS: Uric Acid 6.1 mg/dL (3.7-9.2)
--- NOTE | 2025-10-22 13:23 | NUR.NOTE ---
Nursing Note: Pt called requesting uric acid result. Pt advised of normal uric acid result from today (10/22/25) and advised to f/u w/ PCP and podiatry per discharge instructions.
== END 2025-10-22 09:46 | disposition home or self-care (01) ==
PROVIDERS: Emergency Provider Physician Assistant; PCP Physician Assistant
DX: M79.675 Pain in left toe(s) (principal); E78.5 Hyperlipidemia, unspecified
CPT/HCPCS: 36415; 85652; 99283; 73630; 84550; 86140